=== PATIENT | male | born 1990 | race African-American/Black ===

== ENCOUNTER 2020-11-06 06:09 | Emergency (ER) | payer SELFPAY ==
[~2020-11-06] VITALS: Ht 167.6 cm; Wt 70.3 kg
[2020-11-06 06:48] VITALS: BP 132/73
[2020-11-06] MEDS ORDERED: MORPHINE SULFATE INJ 4 MG/ML DISP.SYRIN ONE (07:17)
[2020-11-06] MEDS ORDERED: AMOX500C2 PO (07:20)
[2020-11-06] MEDS ORDERED: IBUP-1957 PO (07:20)
[2020-11-06] MEDS ORDERED: MORP15TA PO (07:20)
[2020-11-06] MEDS: MORPHINE SULFATE INJ 2 MG/ML DISP.SYRIN IM ONE (07:21)
--- NOTE | 2020-11-06 07:27 | NUR ---
Patient discharged to home in stable condition. Written and verbal after care instructions given. Patient verbalizes understanding of instruction.
== END 2020-11-06 07:28 | disposition home or self-care (01) ==
LOC: ER 06:11
DX: K08.89 Other specified disorders of teeth and supporting structures (principal)
CPT/HCPCS: 96372; 99283; J2270